=== PATIENT | male | born 1965 | race Two or more races ===

== ENCOUNTER → 2022-05-19 | Outpatient (CLI) | payer MEDICAID | END | disposition home or self-care (01) | LOC: LAB 14:24 | PROVIDERS: ATTEND Student in an Organized Health Care Education/Training Program | DX: E11.621 Type 2 diabetes mellitus with foot ulcer (principal) | CPT/HCPCS: 87075; 87205 ==

== ENCOUNTER 2023-06-01 10:51 | Emergency (ER) | payer MEDICAID ==
[~2023-06-01] VITALS: Ht 180.3 cm; Wt 79.2 kg
[2023-06-01 13:18] VITALS: BP 140/75; RESP 16; TEMP 97.2; O2SAT 100
[2023-06-01] MEDS ORDERED: KETOROLAC TROMETH 60MG/2ML VIAL IM ONE (14:00)
[2023-06-01] MEDS ORDERED: KETOROLAC TROMETH 60MG/2ML VIAL ONE (14:07)
[2023-06-01 14:27] VITALS: PULSE 62
[2023-06-01] MEDS ORDERED: IBUP-1456 PO (14:31)
[2023-06-01] MEDS ORDERED: METH-1182 PO (14:31)
== END 2023-06-01 14:39 | disposition home or self-care (01) ==
LOC: ER 10:51
DX: S29.011A Strain of muscle and tendon of front wall of thorax, initial encounter (principal); E11.9 Type 2 diabetes mellitus without complications; Z79.1 Long term (current) use of non-steroidal anti-inflammatories (NSAID); Z79.899 Other long term (current) drug therapy; X58.XXXA Exposure to other specified factors, initial encounter; Y93.89 Activity, other specified; Y92.89 Other specified places as the place of occurrence of the external cause; Y99.8 Other external cause status
CPT/HCPCS: 71101; 96372; 99283; J1885

== ENCOUNTER 2023-07-28 07:14 | Emergency (ER) | payer MEDICAID ==
[~2023-07-28] VITALS: Ht 170.2 cm; Wt 81.5 kg
[~2023-07-28 07:14] MED LIST: IBUP-1456 PO; METH-1182 PO
[2023-07-28 07:47] VITALS: BP 199/97; PULSE 79; RESP 18; TEMP 97.9; O2SAT 100
[2023-07-28] MEDS: LIDOCAINE 2% JELLY 11ml (GLYDO) ONE (08:37)
[2023-07-28] MEDS: LIDOCAINE 2% TOPICAL JELLY 5 ML URJT TOP ONE (08:37)
[2023-07-28] MEDS: INSULIN LISPRO (HUMAN) 100 UNITS/ML ML SC ONE (08:41)
[2023-07-28] MEDS: LIDOCAINE 2% JELLY 11ml (GLYDO) UR ONE (08:49)
[2023-07-28 09:30] LABS: Urine Bacteria FEW /hpf (None Seen); Urine Blood TRACE /uL (Negative); Urine Clarity Clear (Clear); Urine Color Yellow (Yellow); Urine Hyaline Cast FEW /lpf (0 - 2); Urine Protein, UAD TRACE (Negative); Urine Specific Gravity 1.023 (1.001-1.035); Urine Sperm PRESENT /hpf (None Seen); Urine Urobilinogen Normal (Negative); Urine WBC 7 /hpf (0 - 3); Urine pH 6.5 (5.0-8.0)
[2023-07-28] MEDS ORDERED: CIPR500T4 PO (09:46)
== END 2023-07-28 10:01 | disposition home or self-care (01) ==
LOC: ER 07:14
DX: R33.9 Retention of urine, unspecified (principal); D29.1 Benign neoplasm of prostate; E11.65 Type 2 diabetes mellitus with hyperglycemia; Z79.1 Long term (current) use of non-steroidal anti-inflammatories (NSAID); Z79.2 Long term (current) use of antibiotics; Z79.899 Other long term (current) drug therapy
CPT/HCPCS: 51701; 81001; 82962; 87086; 96372; 99283; J1815

== ENCOUNTER 2023-07-29 01:39 | Emergency (ER) | payer MEDICAID ==
[~2023-07-29] VITALS: Ht 180.3 cm; Wt 83.6 kg
[~2023-07-29 01:39] MED LIST changes: +CIPR500T4 PO
[2023-07-29 03:20] VITALS: BP 124/68; PULSE 81; RESP 18; TEMP 98.5; O2SAT 98
== END 2023-07-29 03:22 | disposition home or self-care (01) ==
LOC: ER 01:39
DX: T83.9XXA Unspecified complication of genitourinary prosthetic device, implant and graft, initial encounter (principal); R33.9 Retention of urine, unspecified; E11.9 Type 2 diabetes mellitus without complications
CPT/HCPCS: 51702